=== PATIENT | female | born 1950 ===

== ENCOUNTER 2019-06-23 13:15 | Outpatient (CLI) | payer MEDICARE, OTHER ==
--- NOTE | 2019-06-23 13:55 | ULT ---
BILATERAL LOWER EXTREMITY VENOUS DOPPLER EVALUATION PROVIDED CLINICAL HISTORY: Bilateral lower extremity edema and bilateral lower extremity pain TECHNIQUE: Grayscale, color doppler and spectral doppler images were obtained of the common femoral , femoral, profunda femoral, popliteal and posterior tibial veins of both lower extremities. FINDINGS: There is normal compression, flow and augmentation seen with the deep venous structures within both l ower extremities. IMPRESSION: No sonographic evidence for lower extremity deep venous thrombosis.
== END 2019-06-23 13:16 | disposition home or self-care (01) ==
LOC: ULT 13:15
PROVIDERS: ATTEND Physician Assistant
DX: M79.604 Pain in right leg (principal); M79.605 Pain in left leg; R60.0 Localized edema
CPT/HCPCS: 93970